=== PATIENT | male | born 1955 | race Caucasian/White ===

== ENCOUNTER → 2025-01-19 10:02 | Outpatient (BNVA) | payer OTHER, SELFPAY | PROVIDERS: Visit Provider Nurse Practitioner Family | DX: L73.8 Other specified follicular disorders (principal); L81.4 Other melanin hyperpigmentation; D48.5 Neoplasm of uncertain behavior of skin; L57.0 Actinic keratosis | CPT/HCPCS: 11102; 17000; 99203 ==